=== PATIENT | male | born 1940 | race Caucasian/White ===

== ENCOUNTER 2017-04-03 11:16 | Day surgery (SDC) | payer MEDICARE ==
[~2017-04-03] VITALS: Ht 172.7 cm; Wt 82.7 kg
--- NOTE | ~2017-04-03 | OP ---
PATIENT NAME: ISMAEL BUITRAGO MEDICAL RECORD: [id number] :42 [facility] ADMISS[facility] DATE: SURGEON: RAN WYLIE DO DATE OF OPERATION: 04/03/2017 PROCEDURE: ERCP with sphincterotomy. INDICATION FOR PROCEDURE: Common bile duct and pancreatic ductal dilatation and abnormal findings on CT with prominence of the biliary ductal system. SCOPE: Olympus video side-viewing duodenoscope. MEDICATIONS: General anesthesia per anesthesia. ESTIMATED BLOOD LOSS: Minimal. COMPLICATIONS: None. FINDINGS: Informed consent was given. The patient was made comfortable and placed under general anesthesia and intubated. He was placed in a semi-prone position. The endoscope was advanced under direct visualization through the mouth down to the second portion of the duodenum where the ampulla was encountered. Initial inspection of the ampulla indicated that the ampullary orifice was off set into the 9 o'clock position. The ampulla itself had an appearance of scarring, almost as if a previous ERCP and sphincterotomy had been performed in the past. This has not been documented to my knowledge on past records. That being said, what appeared to be the natural orifice was cannulated into the deep biliary system with ease. 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 If it was not the pancreatic duct exiting high off the common bile duct, it could have been a biliary ductal system. There were no stones, strictures, or filling defects. A small sphincterotomy was performed to extend the opening approximately 2-3 mm. After the sphincterotomy was completed, some bile was noted to be flowing from a small orifice below the cannulated orifice. The guidewire and catheter were removed from the current orifice and cannulation was achieved from the lower ampullary orifice. Another cholangiogram was shot and a guidewire was in the bile duct again in the same location as the previous cannulation. A sphincterotomy was performed to form one single opening between the 2 sites. As there was no filling defects or other abnormalities on this examination, the procedure was terminated at this time. The catheter and guidewire were removed and the endoscope was removed in its entirety from the patient. The patient tolerated the procedure well and there were no complications. IMPRESSION: Dilated bile duct. 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 As stated above, it appeared as if the patient has possibly had an ERCP with sphincterotomy in the past and there has been some scarring from this. It is also possible that a simple biopsy had been performed before and this was the cause of scarring. Other than this, I have no etiology to explain the dilated bile duct. PLAN AND RECOMMENDATIONS: 1. Discharge home when recovery parameters are met. 2. Continue current diet and medications. 3. Recommend repeat imaging in 3 months' time as well as labs including a CMP OPERATIVE REPORT [id number] ISMAEL BUITRAGO to look for changes in current condition. If the ductal system does not decompress, I do not think that this is necessarily a bad thing, and that this may be the patient's normal anatomy. It is possible that the biliary system will decompress now that the ampullary orifice has been opened larger. We will follow this up. TRANSINT:[id number] Voice Confirmation ID: [id number] DOCUMENT ID: [id number] RAN WYLIE DO CC: [id number] DICTATION DATE: 04/03/17 171 RETRIMMER: 04/04/17 0107 [facility] 04/03/17 [facility] [address] [place] [address]
[2017-04-03] MEDS ORDERED: XANAX1 MG PO (14:00)
[2017-04-03] MEDS ORDERED: HYDROCODONE-APA1 TAB PO (14:01)
[2017-04-03] MEDS ORDERED: TRAZODONE HCL150 MG PO (14:02)
[2017-04-03] MEDS ORDERED: SOMA350 MG PO (14:02)
[2017-04-03] MEDS ORDERED: NORVASC5 MG PO (14:03)
[2017-04-03] MEDS ORDERED: PRINIVIL20 MG PO (14:03)
[2017-04-03] MEDS ORDERED: ADVIL200 MG PO (14:04)
[2017-04-03] MEDS ORDERED: MIRALAX17 GM PO (14:10)
[2017-04-03 14:17] VITALS: BP 131/76; Ht 172.7 cm; Wt 82.7 kg
[2017-04-03 14:56] LABS: BASOPHILS 0.2 % (0-2); HEMATOCRIT 35.7 % (42.0-54.0); LYMPHOCYTES 29.2 % (15-50); MCH 30.2 pg (26.0-34.0); MCHC 33.6 g/dL (31.0-37.0); MCV 89.7 fL (80.0-100.0); MEAN PLATELET VOLUME 10.2 fL (7.4-10.4); MONOCYTES 7.5 % (2-11); NEUTROPHILS 61.1 % (40-80); PLATELET COUNT 335 10x3/uL (130-400); RBC 3.98 10x6/uL (4.20-6.10); RDW 12.9 % (11.5-14.5); WBC 5.1 10x3/uL (4.8-10.8)
[2017-04-03 15:08] LABS: INR 0.99 (0.85-1.17); PROTIME 12.9 SECONDS (11.6-15.0)
[2017-04-03 15:16] LABS: ALBUMIN 3.8 g/dL (3.4-5.0); ALKALINE PHOSPHATASE 95 U/L (46-116); ALT (SGPT) 25 U/L (10-68); BILIRUBIN - TOTAL 0.38 mg/dL (0.2-1.3); CALC OSMOLALITY 274 mosm/kg (275-300); CALCIUM 8.8 mg/dL (8.5-10.1); CARBON DIOXIDE 29.9 mmol/L (21.0-32.0); CHLORIDE - SERUM 100 mmol/L (98-107); GLUCOSE 92 mg/dL (74-106); POTASSIUM - SERUM 4.9 mmol/L (3.5-5.1); PROTEIN - SERUM 7.2 g/dL (6.4-8.2); SODIUM 137 mmol/L (136-145); UREA NITROGEN 15 mg/dL (7-18); eGFR NON AFRICAN AMERICAN 78 mL/min (90-120)
--- NOTE | 2017-04-03 16:55 | NUR ---
FLUOROSCOPY TIME 30 SECONDS, CONTRAST AMOUNT 12 CC
--- NOTE | 2017-04-03 18:10 | NUR ---
PATIENT UP AND AROUND IN ROOM WITHOUT DIZZINESS, RIGHT WRIST PIV DC'D WITH TIP INTACT. PATIENT DRESSING IN PERSONAL CLOTHING. DISCHARGE INSTRUCTIONS REVIEWED WITH PATIENT AND SPOUSE
== END 2017-04-03 18:20 | disposition home or self-care (01) ==
LOC: D.OPS 11:16
PROVIDERS: Internal Medicine Gastroenterology
DX: R93.2 Abnormal findings on diagnostic imaging of liver and biliary tract (principal); D46.9 Myelodysplastic syndrome, unspecified; Z85.47 Personal history of malignant neoplasm of testis; I10 Essential (primary) hypertension; Z01.812 Encounter for preprocedural laboratory examination

== ENCOUNTER 2018-03-26 17:19 | Inpatient (IN) | payer MEDICARE, OTHER ==
[~2018-03-26] VITALS: Ht 170.2 cm; Wt 81.6 kg
--- NOTE | ~2018-03-26 | RHP ---
PATIENT: ISMAEL BUITRAOG MEDICAL RECORD: [id number] ACCOUNT: [id number] LOCATION:[facility]1108 : 42 ADMISSION DATE: 03/26/18 REHABILITATION HISTORY AND PHYSICAL EXAMINATION POST ADMISSION PHYSICIAN EXAMINATION POST-ADMISSION PHYSICAL EXAMINATION AND HISTORY AND PHYSICAL DATE OF ADMISSION: 03/26/2018 ADMITTING DIAGNOSIS: Lumbar spondylolisthesis. HISTORY OF PRESENT ILLNESS: The patient is a 77-year-old gentleman, who has about a 7-month history of severe back pain, who has a history of hypertension, several joint surgeries, back surgery, lumbar fusion without instrumentation about 25 years ago, testicular cancer. He lives at home with his significant other. He is independent. He works part-time. He was evaluated by Dr. Nichols with persistent debilitating back pain despite analgesics, nonsteroidal anti-inflammatories, muscle relaxer, and physical therapy. MRI showed multilevel degenerative disc disease at L4-L5 with associated spondylolisthesis and severe canal stenosis. He was scheduled for an L3 to L5 transforaminal lumbar interbody fusion with instrumentation on 03/21. Post procedure, he had severe spondylosis, previous attempted fusion with pseudoarthrosis, prosthetics devices, graft, tissues, transplants, or device implanted per [employer]. Postop, he was unable to void or have a BM with perianal numbness. He is weak and deconditioned requiring [id number] assist with PT and OT. He was able to ambulate 150 feet min assist, but has decreased balance and safety. He remains with a [place] in place. He needs bowel and bladder training. He did have a BM after an enema on 03/25. requested acute rehab consultation prior to his discharge home. The patient will be wearing a LSO while out of bed. The patient would like to be as independent as possible before returning home. COMORBIDITIES: Comorbidities in this patient include hypertension, bilateral neural foraminal narrowing, bladder dysfunction, spondylolisthesis, severe canal stenosis, perianal numbness, bilateral lower extremity weakness, and constipation. PAST MEDICAL HISTORY: Significant for back pain, spondylolisthesis. PAST SURGICAL HISTORY: Includes bilateral knee surgery, shoulder surgery, and testicular cancer. ALLERGIES: SULFA AND OXYCODONE. CURRENT MEDICATIONS: Include a multivitamin daily, lisinopril 20 mg daily, Flonase nasal spray 1 spray daily, vitamin D 5000 units daily, vitamin B complex daily, Norvasc 5 mg daily, Sudafed 120 mg b.i.d. p.r.n., trazodone 200 mg bedtime p.r.n., Soma 350 mg at bedtime, Astelin nasal spray b.i.d., Xanax 1 mg b.i.d., [place] 10/325 one tab every 4-6 hours p.r.n. pain, and Valium 5 mg every 8 hours p.r.n. anxiety. HABITS: No alcohol or tobacco use. FAMILY HISTORY: Noncontributory. HISTORY AND PHYSICAL [id number] ISMAEL BUITRAGO SOCIAL HISTORY: The patient hopes to return back home and get back to his prior level of functioning. REVIEW OF SYSTEMS: GENERAL: Does complain of weakness and fatigue. HEENT: Denies cold, cough, or congestion. CARDIOVASCULAR: Denies chest pain. PHYSICAL EXAMINATION: VITAL SIGNS: Stable, afebrile. GENERAL: An elderly gentleman, in no acute distress upon exam. HEENT: Normocephalic and atraumatic. Mucosa moist. NECK: Supple. No lymphadenopathy. LUNGS: Clear at this time. HEART: Regular rate and rhythm. ABDOMEN: Benign. EXTREMITIES: No clubbing, cyanosis, or edema. NEUROLOGIC: Does have noted weakness. ASSESSMENT: This is a 77-year-old gentleman, who was admitted to the rehab with a working diagnosis of lumbar spondylolisthesis, status post procedure. The patient has potential to make improvement. We will institute the following multidisciplinary therapies including, but not limited to physical, occupational, respiratory, speech, nutritional services, prosthetics and orthotics. Given his complex medical condition and risks for more complications, rehabilitation services cannot be provided at a low level of care such as a care home facility. PLAN: 1. Admit to [facility] for intensive inpatient therapy to include the following disciplines: A. Physical therapy to improve gait, all transfer skills and bed mobility to a modified independent level. B. Occupational therapy to improve activities of daily living to a modified independent level. C. Case management to assist with discharge planning and placement options. D. Nutrition to assist with nutritional needs. E. Rehabilitation nursing to assist in monitoring the patient's underlying medical conditions and to assist with any type of bowel or bladder management. 2. The patient's current medications and medical care will be continued. 3. The patient will be placed on standard fall precautions. 4. The patient's estimated length of stay is approximately 7-10 days. 5. We will discuss this patient during care team staff meeting this week and I will follow up in the a.m. TRANSINT:[id number] Voice Confirmation ID: [id number] DOCUMENT ID: [id number] VARSHA notes whether there has been none or any medical/functional change since admission: - No change since prescreen. VARSHA attests patient continues to be appropriate for IRF: - Continues to be appropriate. HISTORY AND PHYSICAL [id number] ISMAEL BUITRAGO SCOTT MD at 1733 CC: [id number] DICTATION DATE: 03/27/18 1132 MINERAL SURVEYOR: 03/27/18 1252 ADM IN [place] [id number] [place] [address]
[~2018-03-26 17:19] MED LIST: ADVIL200 MG PO; HYDROCODONE-APA1 TAB PO; MIRALAX17 GM PO; NORVASC5 MG PO; PRINIVIL20 MG PO; SOMA350 MG PO; TRAZODONE HCL150 MG PO; XANAX1 MG PO
[2018-03-26 18:30] VITALS: BP 136/93; BMI 28.2
[2018-03-26 19:00] VITALS: BP 136/93
[2018-03-27 08:57] VITALS: BP 143/82
[2018-03-27 13:33] VITALS: BMI 28.2
[2018-03-27 19:00] VITALS: BP 132/81
[2018-03-28 07:33] LABS: CALC OSMOLALITY 268 mosm/kg (275-300); CALCIUM 8.1 mg/dL (8.5-10.1); CARBON DIOXIDE 25.5 mmol/L (21.0-32.0); CHLORIDE - SERUM 98 mmol/L (98-107); GLUCOSE 111 mg/dL (74-106); POTASSIUM - SERUM 3.7 mmol/L (3.5-5.1); SODIUM 134 mmol/L (136-145); UREA NITROGEN 12 mg/dL (7-18); eGFR NON AFRICAN AMERICAN 77 mL/min (90-120)
[2018-03-28 08:00] VITALS: BP 138/71
[2018-03-28 08:03] LABS: BASOPHILS 0.2 % (0-2); EOSINOPHILS 2.9 % (0-7); HEMATOCRIT 27.2 % (42.0-54.0); HEMOGLOBIN 9.4 g/dL (13.5-17.5); IMMATURE GRANULOCYTES 0.8 % (0-5); LYMPHOCYTES 22.1 % (15-50); MCH 30.3 pg (26.0-34.0); MCHC 34.6 g/dL (31.0-37.0); MCV 87.7 fL (80.0-100.0); MEAN PLATELET VOLUME 8.8 fL (7.4-10.4); MONOCYTES 8.9 % (2-11); NEUTROPHILS 65.1 % (40-80); PLATELET COUNT 436 10x3/uL (130-400); RDW 12.4 % (11.5-14.5); WBC 8.7 10x3/uL (4.8-10.8)
[2018-03-28 19:00] VITALS: BP 145/64
[2018-03-29 08:19] VITALS: BP 130/73
[2018-03-29 19:00] VITALS: BP 125/67
[2018-03-30 06:24] LABS: BASOPHILS 0.3 % (0-2); EOSINOPHILS 2.5 % (0-7); HEMATOCRIT 25.7 % (42.0-54.0); HEMOGLOBIN 8.8 g/dL (13.5-17.5); IMMATURE GRANULOCYTES 0.6 % (0-5); LYMPHOCYTES 21.8 % (15-50); MCHC 34.2 g/dL (31.0-37.0); MCV 87.7 fL (80.0-100.0); MEAN PLATELET VOLUME 8.6 fL (7.4-10.4); MONOCYTES 10.5 % (2-11); NEUTROPHILS 64.3 % (40-80); PLATELET COUNT 486 10x3/uL (130-400); RBC 2.93 10x6/uL (4.20-6.10); RDW 12.5 % (11.5-14.5); WBC 9.4 10x3/uL (4.8-10.8)
[2018-03-30 06:37] LABS: ANION GAP 16.6 mmol/L (8-16); CALCIUM 8.1 mg/dL (8.5-10.1); CARBON DIOXIDE 23.4 mmol/L (21.0-32.0); CREATININE - SERUM 1.1 mg/dL (0.6-1.3)
[2018-03-30 08:05] VITALS: BP 113/63
[2018-03-30 20:51] VITALS: BP 113/63
[2018-03-31 07:06] LABS: BASOPHILS 0.2 % (0-2); EOSINOPHILS 1.6 % (0-7); HEMATOCRIT 26.5 % (42.0-54.0); HEMOGLOBIN 9.1 g/dL (13.5-17.5); IMMATURE GRANULOCYTES 0.6 % (0-5); LYMPHOCYTES 14.4 % (15-50); MCH 30.2 pg (26.0-34.0); MCHC 34.3 g/dL (31.0-37.0); MEAN PLATELET VOLUME 8.3 fL (7.4-10.4); NEUTROPHILS 73.2 % (40-80); PLATELET COUNT 505 10x3/uL (130-400); RBC 3.01 10x6/uL (4.20-6.10); RDW 12.4 % (11.5-14.5); WBC 9.4 10x3/uL (4.8-10.8)
[2018-03-31 07:18] LABS: CALC OSMOLALITY 266 mosm/kg (275-300); CALCIUM 8.4 mg/dL (8.5-10.1); CARBON DIOXIDE 24.2 mmol/L (21.0-32.0); CHLORIDE - SERUM 97 mmol/L (98-107); GLUCOSE 114 mg/dL (74-106); SODIUM 132 mmol/L (136-145); UREA NITROGEN 14 mg/dL (7-18); eGFR NON AFRICAN AMERICAN 77 mL/min (90-120)
[2018-03-31 07:22] LABS: POTASSIUM - SERUM 4.8 mmol/L (3.5-5.1)
[2018-03-31 08:00] VITALS: BP 125/64
[2018-03-31 20:00] VITALS: BP 132/61
[2018-04-02 07:27] LABS: BASOPHILS 0.3 % (0-2); EOSINOPHILS 1.7 % (0-7); HEMATOCRIT 30.2 % (42.0-54.0); HEMOGLOBIN 10.2 g/dL (13.5-17.5); IMMATURE GRANULOCYTES 0.7 % (0-5); LYMPHOCYTES 16.9 % (15-50); MCH 29.2 pg (26.0-34.0); MCHC 33.8 g/dL (31.0-37.0); MCV 86.5 fL (80.0-100.0); MEAN PLATELET VOLUME 8.4 fL (7.4-10.4); MONOCYTES 6.8 % (2-11); NEUTROPHILS 73.6 % (40-80); PLATELET COUNT 563 10x3/uL (130-400); RBC 3.49 10x6/uL (4.20-6.10); RDW 13.4 % (11.5-14.5); WBC 8.8 10x3/uL (4.8-10.8)
[2018-04-02 07:40] LABS: CALC OSMOLALITY 260 mosm/kg (275-300); CALCIUM 8.4 mg/dL (8.5-10.1); CARBON DIOXIDE 25.6 mmol/L (21.0-32.0); CHLORIDE - SERUM 96 mmol/L (98-107); GLUCOSE 101 mg/dL (74-106); POTASSIUM - SERUM 4.3 mmol/L (3.5-5.1); SODIUM 130 mmol/L (136-145); UREA NITROGEN 13 mg/dL (7-18); eGFR NON AFRICAN AMERICAN 77 mL/min (90-120)
[2018-04-02 08:20] VITALS: BP 133/73
[2018-04-02 19:00] VITALS: BP 138/74
[2018-04-03 08:00] VITALS: BP 124/56
[2018-04-03 18:14] VITALS: Ht 170.2 cm; Wt 81.6 kg
[2018-04-03 19:00] VITALS: BP 124/64
[2018-04-04 06:47] LABS: BASOPHILS 0.2 % (0-2); EOSINOPHILS 1.2 % (0-7); HEMATOCRIT 31.5 % (42.0-54.0); HEMOGLOBIN 10.7 g/dL (13.5-17.5); IMMATURE GRANULOCYTES 0.4 % (0-5); LYMPHOCYTES 18.8 % (15-50); MCH 29.4 pg (26.0-34.0); MCV 86.5 fL (80.0-100.0); MEAN PLATELET VOLUME 8.6 fL (7.4-10.4); MONOCYTES 5.7 % (2-11); NEUTROPHILS 73.7 % (40-80); PLATELET COUNT 633 10x3/uL (130-400); RBC 3.64 10x6/uL (4.20-6.10); WBC 9.8 10x3/uL (4.8-10.8)
[2018-04-04 07:14] LABS: ANION GAP 13.5 mmol/L (8-16); CALCIUM 8.7 mg/dL (8.5-10.1); CARBON DIOXIDE 26.1 mmol/L (21.0-32.0); CREATININE - SERUM 1.1 mg/dL (0.6-1.3); POTASSIUM - SERUM 4.6 mmol/L (3.5-5.1)
[2018-04-04 08:00] VITALS: BP 133/59
[2018-04-04 19:00] VITALS: BP 117/58
[2018-04-05 08:00] VITALS: BP 135/66
[2018-04-05 19:00] VITALS: BP 135/75
[2018-04-06 05:44] LABS: BASOPHILS 0.2 % (0-2); EOSINOPHILS 1.5 % (0-7); HEMATOCRIT 28.6 % (42.0-54.0); HEMOGLOBIN 9.7 g/dL (13.5-17.5); IMMATURE GRANULOCYTES 0.2 % (0-5); LYMPHOCYTES 18.4 % (15-50); MCHC 33.9 g/dL (31.0-37.0); MCV 85.4 fL (80.0-100.0); MEAN PLATELET VOLUME 8.4 fL (7.4-10.4); MONOCYTES 8.1 % (2-11); NEUTROPHILS 71.6 % (40-80); PLATELET COUNT 578 10x3/uL (130-400); RBC 3.35 10x6/uL (4.20-6.10); RDW 12.9 % (11.5-14.5); WBC 8.1 10x3/uL (4.8-10.8)
[2018-04-06 06:07] LABS: CALC OSMOLALITY 253 mosm/kg (275-300); CALCIUM 8.4 mg/dL (8.5-10.1); CARBON DIOXIDE 27.3 mmol/L (21.0-32.0); CHLORIDE - SERUM 93 mmol/L (98-107); GLUCOSE 100 mg/dL (74-106); POTASSIUM - SERUM 4.6 mmol/L (3.5-5.1); SODIUM 126 mmol/L (136-145); UREA NITROGEN 15 mg/dL (7-18); eGFR NON AFRICAN AMERICAN 77 mL/min (90-120)
[2018-04-06 08:00] VITALS: BP 117/76
[2018-04-06 19:45] VITALS: BP 127/67
[2018-04-07 05:48] LABS: BASOPHILS 0.3 % (0-2); HEMATOCRIT 27.3 % (42.0-54.0); HEMOGLOBIN 9.2 g/dL (13.5-17.5); IMMATURE GRANULOCYTES 0.3 % (0-5); LYMPHOCYTES 22.5 % (15-50); MCH 29.1 pg (26.0-34.0); MCHC 33.7 g/dL (31.0-37.0); MCV 86.4 fL (80.0-100.0); MEAN PLATELET VOLUME 8.3 fL (7.4-10.4); MONOCYTES 7.2 % (2-11); NEUTROPHILS 67.7 % (40-80); PLATELET COUNT 518 10x3/uL (130-400); RBC 3.16 10x6/uL (4.20-6.10); RDW 12.9 % (11.5-14.5); WBC 6.5 10x3/uL (4.8-10.8)
[2018-04-07 06:02] LABS: ANION GAP 11.2 mmol/L (8-16); CALCIUM 8.3 mg/dL (8.5-10.1); CARBON DIOXIDE 27.4 mmol/L (21.0-32.0); CREATININE - SERUM 1.2 mg/dL (0.6-1.3); POTASSIUM - SERUM 4.6 mmol/L (3.5-5.1)
[2018-04-07 08:56] VITALS: BP 131/76
[2018-04-07 21:54] VITALS: BP 122/74
[2018-04-08 13:35] VITALS: BP 146/71
[2018-04-08 20:53] VITALS: BP 108/69
[2018-04-09 08:00] VITALS: BP 104/52
[2018-04-10 07:00] VITALS: BP 134/70
[2018-04-10 20:09] VITALS: BP 119/65
[2018-04-11 06:49] LABS: BASOPHILS 0.1 % (0-2); EOSINOPHILS 0.3 % (0-7); HEMATOCRIT 28.2 % (42.0-54.0); HEMOGLOBIN 9.6 g/dL (13.5-17.5); IMMATURE GRANULOCYTES 0.2 % (0-5); LYMPHOCYTES 11.6 % (15-50); MCH 29.4 pg (26.0-34.0); MCV 86.5 fL (80.0-100.0); MEAN PLATELET VOLUME 9.1 fL (7.4-10.4); MONOCYTES 8.1 % (2-11); NEUTROPHILS 79.7 % (40-80); PLATELET COUNT 501 10x3/uL (130-400); RBC 3.26 10x6/uL (4.20-6.10); RDW 13.2 % (11.5-14.5); WBC 11.8 10x3/uL (4.8-10.8)
[2018-04-11 07:02] LABS: CALC OSMOLALITY 261 mosm/kg (275-300); CALCIUM 8.6 mg/dL (8.5-10.1); CARBON DIOXIDE 24.5 mmol/L (21.0-32.0); CHLORIDE - SERUM 95 mmol/L (98-107); CREATININE - SERUM 0.9 mg/dL (0.6-1.3); GLUCOSE 101 mg/dL (74-106); POTASSIUM - SERUM 4.5 mmol/L (3.5-5.1); SODIUM 130 mmol/L (136-145); UREA NITROGEN 14 mg/dL (7-18); eGFR NON AFRICAN AMERICAN 87 mL/min (90-120)
[2018-04-11 08:27] VITALS: BP 107/65
[2018-04-11 20:29] VITALS: BP 118/63
[2018-04-12 08:00] VITALS: BP 147/79
[2018-04-12 19:00] VITALS: BP 106/42
[2018-04-13 08:00] VITALS: BP 129/60
[2018-04-13] MEDS ORDERED: FLOMAX0.4 MG PO (09:06)
[2018-04-13] MEDS ORDERED: LINZESS145 MCG PO (09:07)
[2018-04-13] MEDS ORDERED: NORCO-10 PO (09:07)
[2018-04-13] MEDS ORDERED: PROSCAR5 MG PO (09:07)
== END 2018-04-13 14:07 | disposition home health service (06) | DRG 552 ==
LOC: D.REHAB 17:19
PROVIDERS: Emergency Medicine
DX: M43.16 Spondylolisthesis, lumbar region (principal); I10 Essential (primary) hypertension; N31.9 Neuromuscular dysfunction of bladder, unspecified; M48.061 Spinal stenosis, lumbar region without neurogenic claudication; R20.0 Anesthesia of skin; R53.1 Weakness; K59.00 Constipation, unspecified; Z85.47 Personal history of malignant neoplasm of testis